=== PATIENT | male | born 1980 | race Caucasian/White ===

== ENCOUNTER 2017-06-12 18:06 | Emergency (ER) | payer OTHER ==
[~2017-06-12] VITALS: Ht 167.6 cm; Wt 63.5 kg
[2017-06-12 18:11] VITALS: BP 138/89
[2017-06-12] MEDS ORDERED: AMOXICILLIN250 M3 PO (18:41)
[2017-06-12] MEDS ORDERED: PERCOCET 5-3251 EACH PO (18:41)
--- NOTE | 2017-06-12 18:42 | ED THROAT/DENTAL COMPLAINT ---
History of Present Illness General Chief Complaint: Sore Throat, Dental Pain Stated Complaint: DENTAL PAIN Source: patient Exam Limitations: no limitations Vital Signs & Intake/Output Vital Signs & Intake/Output Vital Signs Date Time Temp Pulse Resp B/P B/P Pulse O2 O2 Flow FiO2 Mean Ox Delivery Rate 06/12 1847 96 Room Air 06/12 1811 98.2 84 18 138/89 99 Room Air Allergies Coded Allergies: No Known Allergies (08/25/15) Reconcile Medications Amoxicillin 250 MG CAPSULE 1 CAP PO TID tooth infection Oxycodone HCl/Acetaminophen (Percocet 5-325 MG Tablet) 5 MG-325 MG TABLET 1-2 TAB PO Q6P PRN PAIN Triage Note: PT FROM HOME C/O DENTAL PAIN X3 DAYS PAIN 08/24. PT STATES LEFT UPPER WISDOM TOOTH NEEDS TO BE TAKEN OUT AND PT HAS BEEN NEGLECTFUL. PT STATES "I THINK I MIGHT NEED ANTIBIOTIC AND I HAVE BEEN TAKING 800MG MOTRIN WITH NO RELIEF" PTS VSS. NO DISTRESS NOTED. Triage Nurses Notes Reviewed? yes HPI: Patient presents with pain and swelling to his left upper was some tooth area. Patient states that he was told to get his was some teeth removed 10 years ago but he never did. Patient has no appointment in 3 days with his dentist. There are no fevers or chills. Patient describes a pressure sensation which is 10 out of 10. There is no radiation of the pain. There are no aggravating or mitigating factors. Past History Travel History Traveled to [place] past 21 day No Medical History Any Pertinent Medical History? see below for history Neurological: EPILEPSY LYME DISEASE EENT: NONE Cardiovascular: NONE Respiratory: NONE Gastrointestinal: NONE Hepatic: NONE Renal: NONE Musculoskeletal: NONE Psychiatric: NONE Endocrine: NONE Blood Disorders: NONE Cancer(s): NONE SAWYER HELPER/Reproductive: NONE Surgical History Surgical History: non-contributory Psychosocial History What is your primary language Serbian Tobacco Use: Current Daily Use Daily Tobacco Use Amount/Type: => 5 Cigarettes daily ETOH Use: occasional use Illicit Drug Use: denies illicit drug use Family History Hx Contributory? No Review of Systems Review of Systems Constitutional: Reports: no symptoms. EENTM: Reports: see HPI, tooth pain. Respiratory: Reports: no symptoms. Cardiovascular: Reports: no symptoms. Neurological/Psychological: Reports: no symptoms. Immunologic/Allergic: Reports: no symptoms. Physical Exam Physical Exam General Appearance: well developed/nourished, alert, awake, anxious, moderate distress Head: atraumatic Eyes: Bilateral: PERRL, EOMI. Mouth/Throat: dental tenderness Neck: normal inspection, supple Cardiovascular/Respiratory: normal breath sounds, normal peripheral pulses, regular rate/rhythm, no respiratory distress Neurologic/Psych: no motor/sensory deficits, awake, alert, oriented x 3, normal gait, normal mood/affect Comments: NO CERVICAL LAD Core Measures ACS in differential dx? No Sepsis Present: No Sepsis Focused Exam Completed? No Progress Differential Diagnosis: odontogenic abscess Plan of Care: ABX AND PAIN CONTROL Departure Departure Disposition: HOME OR SELF CARE Condition: Stable Clinical Impression Primary Impression: Toothache Referrals: Unknown (PCP/Family) Additional Instructions: follow up with your dentist return if symptoms worsen or for any concerns Departure Forms: Customer Survey General Discharge Information Prescriptions: Current Visit Scripts Amoxicillin 1 CAP PO TID #21 CAP Oxycodone HCl/Acetaminophen (Percocet 5-325 MG Tablet) 1-2 TAB PO Q6P PRN PAIN #20 TAB
== END 2017-06-12 18:49 ==
LOC: ERH 18:06
DX: K08.89 Other specified disorders of teeth and supporting structures (principal)